=== PATIENT | male | born 1950 | race Caucasian/White ===

== ENCOUNTER → 2016-06-29 | Outpatient (CLI) | payer MEDICARE, BC ==
[2016-06-29 10:35] LABS: ANION GAP 17 (5-19); BLOOD UREA NITROGEN 66 mg/dL (7-20); CALCIUM 7.6 mg/dL (8.4-10.2); CARBON DIOXIDE 18 mmol/L (22-30); CHLORIDE 108 mmol/L (98-107); CREATININE RESULT 5.05 mg/dL (0.52-1.25); GLUCOSE 84 mg/dL (75-110); POTASSIUM 4.2 mmol/L (3.6-5.0)
[2016-06-30 11:40] LABS: CREATININE URINE 48.5 mg/dL (Not Estab.)
== END ==
LOC: OD 08:45
PROVIDERS: ATTEND Internal Medicine Nephrology
DX: N18.5 Chronic kidney disease, stage 5 (principal); N25.81 Secondary hyperparathyroidism of renal origin; R80.9 Proteinuria, unspecified
CPT/HCPCS: 36415; 80048; 82570; 83970; 84156

== ENCOUNTER 2016-07-04 01:02 | Emergency (ER) | payer BC, MEDICARE ==
[2016-07-04] MEDS ORDERED: NORMAL SALINE 1000 ML 500 ML IV ONE (01:52)
[2016-07-04] MEDS ORDERED: NORMAL SALINE 1000 ML 1,000 ML IV ONE (01:53)
--- NOTE | 2016-07-04 01:53 | ER Document Report ---
ED Fever - General Chief Complaint: Fever Stated Complaint: FEVER, URINARY PROBLEMS Time seen by provider: 01:50 Notes: Patient is a 65-year-old male that comes emergency department with chief complaint of fever that started yesterday, patient reports occasional cough, reports chills, denies any locations of pain. Patient has a history of stage V renal disease and performs self-catheterization, patient does have a history of urosepsis. Patient does not get dialysis but he has an AV fistula already prepared if he needs it. TRAVEL OUTSIDE OF THE [place] IN LAST 30 DAYS: No - Related Data Allergies/Adverse Reactions: No Known Allergies Allergy (Unverified 11/11/11 13:30) Past Medical History - General Information source: Patient - Social History Smoking Status: Never Smoker Chew tobacco use (# tins/day): No Frequency of alcohol use: None Drug Abuse: None Lives with: Family Family History: Reviewed & Not Pertinent Patient has suicidal ideation: No Patient has homicidal ideation: No - Medical History Medical History: Negative - Past Medical History Cardiac Medical History: Denies: Hx Coronary Artery Disease, Hx Heart Attack, Hx Hypertension Pulmonary Medical History: Denies: Hx Asthma, Hx Bronchitis, Hx COPD, Hx Pneumonia, Hx Tuberculosis Neurological Medical History: Denies: Hx Cerebrovascular Accident, Hx Seizures Renal/ Medical History: Denies: Hx Peritoneal Dialysis Musculoskeltal Medical History: Denies Hx Arthritis Surgical Hx: Negative Past Surgical History: Denies: Hx Pacemaker - Immunizations Hx Diphtheria, Pertussis, Tetanus Vaccination: Yes Hx Pneumococcal Vaccination: 11/04/11 Review of Systems - Review of Systems Constitutional: See HPI EENT: No symptoms reported Cardiovascular: No symptoms reported Respiratory: See HPI Gastrointestinal: No symptoms reported Genitourinary: See HPI Male Genitourinary: No symptoms reported Musculoskeletal: No symptoms reported Skin: No symptoms reported Hematologic/Lymphatic: No symptoms reported Neurological/Psychological: No symptoms reported Physical Exam - Vital signs Vitals: Temp Pulse Resp BP Pulse Ox 99.1 F 125 H 20 210/90 H 95 07/04/16 01:07 07/04/16 01:07 07/04/16 01:07 07/04/16 01:07 07/04/16 01:07 Interpretation: Normal - General General appearance: Appears well, Alert In distress: Mild - patient appears to have chills - HEENT Head: Normocephalic, Atraumatic Eyes: Normal Conjunctiva: Normal Extraocular movements intact: Yes Eyelashes: Normal Pupils: PERRL Sinus: Normal Nasal: Normal Mouth/Lips: Normal Mucous membranes: Normal Pharynx: Normal Neck: Normal - Respiratory Respiratory status: No respiratory distress. No: Respiratory distress, Labored Chest status: Nontender Breath sounds: Normal. No: Decreased air movement, Rales, Rhonchi, Stridor, Wheezing Chest palpation: Normal - Cardiovascular Rhythm: Regular, Tachycardia Heart sounds: Normal auscultation, S1 appreciated, S2 appreciated Murmur: No - Abdominal Inspection: Normal Distension: No distension Bowel sounds: Normal Tenderness: Nontender. No: Tender, Guarding - Back Back: Normal, Nontender - Extremities General upper extremity: Normal inspection, Nontender, Normal color, Normal ROM , Normal temperature General lower extremity: Normal inspection, Nontender, Normal color, Normal ROM , Normal temperature, Normal weight bearing. No: Mckayla's sign - Neurological Neuro grossly intact: Yes Cognition: Normal Orientation: AAOx4 Nicole Coma Scale Eye Opening: Spontaneous Nicole Coma Scale Verbal: Oriented [place] Coma Scale Motor: Obeys Commands Nicole Coma Scale Total: 15 Speech: Normal Motor strength normal: LUE, RUE, LLE, RLE Sensory: Normal - Psychological Associated symptoms: Normal affect, Normal mood - Skin Skin Temperature: Warm Skin Moisture: Dry Skin Color: Flushed Course - Re-evaluation Re-evalutation: Patient flushed and has chills, tachycardic, given IV fluids, sepsis workup ordered. Chest x-ray unremarkable, EKG shows tachycardia, CBC unremarkable with no leukocytosis, chemistry shows creatinine of 4.7 which is approximately baseline for patient. Chemistry and generally unremarkable otherwise, lactic acid is not elevated, venous blood gases not showing acidosis. Urinalysis shows large leukocyte esterase with bacteria and large amount of white blood cells. Patient given Levaquin. Because of history of urosepsis, patient performing self-catheterization, history of chronic kidney disease with borderline failure , discussed with patient potential admission to the hospital. Previous urine culture shows resistance to cephalosporins and penicillin-based medications. Sensitive to Rocephin and Levaquin. Patient given Rocephin as well. Patient declines admission to hospital, states he will go home, states that he will take oral medication, he does agree to contact his quarantine officer today, he has agreed to return if he feels any worse. In discussed admission to the hospital, discussed with Dr. Smith, patient declining and states he wants to go home but he will return if he worsens in any way. is in agreement with this. - Vital Signs Vital signs: Temp Pulse Resp BP Pulse Ox 99.1 F 125 H 18 179/84 H 98 07/04/16 01:07 07/04/16 01:07 07/04/16 05:01 07/04/16 05:01 07/04/16 05:01 - Laboratory Result Diagrams: 07/04/16 01:59 07/04/16 01:59 Laboratory results interpreted by me: 07/04/16 07/04/16 07/04/16 01:59 01:59 01:59 RBC 4.34 L Hgb 12.5 L Hct 36.8 L RDW 14.7 H Plt Count 81 L Seg Neutrophils % 87.7 H Lymphocytes % 9.9 L Monocytes % 1.1 L VBG pCO2 31.8 L VBG HCO3 19.6 L Chloride 109 H Carbon Dioxide 19 L BUN 51 H Creatinine 4.71 H Est GFR ( Amer) 15 L Est GFR (Non-Af Amer) 13 L Glucose 115 H Calcium 7.1 L Albumin 3.4 L Urine Protein Urine Blood Ur Leukocyte Esterase 07/04/16 02:20 RBC Hgb Hct RDW Plt Count Seg Neutrophils % Lymphocytes % Monocytes % VBG pCO2 VBG HCO3 Chloride Carbon Dioxide BUN Creatinine Est GFR ( Amer) Est GFR (Non-Af Amer) Glucose Calcium Albumin Urine Protein 100 H Urine Blood SMALL H Ur Leukocyte Esterase LARGE H Discharge - Discharge Clinical Impression: Fever Qualifiers: Fever type: unspecified Qualified Code(s): R50.9 - Fever, unspecified Urinary tract infection Qualifiers: Urinary tract infection type: site unspecified Hematuria presence: without hematuria Qualified Code(s): N39.0 - Urinary tract infection, site not specified Condition: Stable Disposition: HOME, SELF-CARE Additional Instructions: We have a urine and blood cultures growing in our laboratory. Your results indicate a urinary tract infection. Please take antibiotics as directed. Please contact your quarantine officer today for very close follow-up. Return to emergency department for any concerning or worsening symptoms. Prescriptions: Levofloxacin [Levaquin 750 mg Tablet] 750 mg PO DAILY #5 tablet Referrals: ROMAN VIERA MD [ACTIVE STAFF] - 07/04/16
[2016-07-04] MEDS ORDERED: LEVOFLOXACIN 750 MG/D5W RTU 150 ML IV ONE (02:09)
[2016-07-04 02:26] LABS: VENOUS BLOOD BASE EXCESS -4.1 mmol/L; VENOUS BLOOD HCO3 19.6 mmol/L (20-32); VENOUS BLOOD PCO2 31.8 mmHg (35-63); VENOUS BLOOD PH 7.41 (7.30-7.42)
[2016-07-04 02:32] LABS: PROTHROMBIN TIME 14.8 SEC (11.4-15.4)
[2016-07-04 02:49] LABS: ABSOLUTE LYMPHOCYTES (AUTO) 0.5 10^3/uL (0.5-4.7); ABSOLUTE MONOCYTES (AUTO) 0.1 10^3/uL (0.1-1.4); ABSOLUTE NEUT (AUTO) 4.1 10^3/uL (1.7-8.2); BASOPHILS % (AUTO) 0.4 % (0-2); EOSINOPHILS % (AUTO) 0.9 % (0-6); HEMATOCRIT 36.8 % (37.9-51.0); HEMOGLOBIN 12.5 g/dL (13.5-17.0); HGB HCT DIFFERENCE 0.7; LYMPHOCYTES % (AUTO) 9.9 % (13-45); MEAN CORPUSCULAR HEMOGLOBIN 28.8 pg (27.0-33.4); MEAN CORPUSCULAR VOLUME 85 fl (80-97); MONOCYTES % (AUTO) 1.1 % (3-13); RED BLOOD COUNT 4.34 10^6/uL (4.35-5.55); RED CELL DISTRIBUTION WIDTH 14.7 % (11.5-14.0); SEGMENTED NEUTROPHILS % (AUTO) 87.7 % (42-78); WHITE BLOOD COUNT 4.7 10^3/uL (4.0-10.5)
[2016-07-04 02:59] LABS: APPEARANCE,URINE CLOUDY; BILIRUBIN,URINE NEGATIVE (NEGATIVE); GLUCOSE, URINE NEGATIVE (NEGATIVE); KETONES,URINE NEGATIVE (NEGATIVE); LEUKOCYTE ESTERASE,URINE LARGE (NEGATIVE); NITRITE,URINE NEGATIVE (NEGATIVE); PROTEIN,URINE 100 mg/dL (NEGATIVE); UROBILINOGEN,URINE NEGATIVE mg/dL (<2.0)
[2016-07-04 03:21] LABS: ALANINE AMINOTRANSFERASE 27 U/L (21-72); ALBUMIN 3.4 g/dL (3.5-5.0); ALKALINE PHOSPHATASE 85 U/L (38-126); ANION GAP 14 (5-19); ASPARTATE AMINO TRANSFERASE 23 U/L (17-59); BILIRUBIN,TOTAL 0.7 mg/dL (0.2-1.3); BLOOD UREA NITROGEN 51 mg/dL (7-20); CALCIUM 7.1 mg/dL (8.4-10.2); CARBON DIOXIDE 19 mmol/L (22-30); CHLORIDE 109 mmol/L (98-107); CREATININE RESULT 4.71 mg/dL (0.52-1.25); GLUCOSE 115 mg/dL (75-110); POTASSIUM 3.8 mmol/L (3.6-5.0); SODIUM 142.4 mmol/L (137-145); TOTAL PROTEIN 6.5 g/dL (6.3-8.2)
[2016-07-04] MEDS ORDERED: CEFTRIAXONE 1 GM/D5W RTU 50 ML IV ONE (03:54)
[2016-07-04 05:17] VITALS: BP 179/84
--- NOTE | 2016-07-04 08:30 | EKG REPORT ---
SEVERITY:- ABNORMAL ECG - SINUS TACHYCARDIA PROBABLE LEFT ATRIAL ABNORMALITY LAD, CONSIDER LEFT ANTERIOR FASCICULAR BLOCK : Confirmed by: Artemio Tapia 04-Jul-2016 08:28:33
== END 2016-07-04 05:16 | disposition home or self-care (01) ==
LOC: ER 01:02
DX: N39.0 Urinary tract infection, site not specified (principal); R50.9 Fever, unspecified; R05 Cough; R00.0 Tachycardia, unspecified; N18.4 Chronic kidney disease, stage 4 (severe)
CPT/HCPCS: 93005; 99284; 96365; 96367; 36415; 87040; 87086; 85025; 85610; 87088; 80053; 81001; 87186; 82803; 83605; 71020; 93010; J7030; J0696; J1956

== ENCOUNTER → 2016-10-13 | Outpatient (CLI) | payer MEDICARE, BC ==
[2016-10-13 10:17] LABS: ABSOLUTE EOSINOPHILS # (AUTO) 0.1 10^3/uL (0.0-0.6); ABSOLUTE LYMPHOCYTES (AUTO) 1.7 10^3/uL (0.5-4.7); ABSOLUTE MONOCYTES (AUTO) 0.3 10^3/uL (0.1-1.4); ABSOLUTE NEUT (AUTO) 2.5 10^3/uL (1.7-8.2); BASOPHILS % (AUTO) 0.8 % (0-2); EOSINOPHILS % (AUTO) 2.6 % (0-6); HEMOGLOBIN 13.6 g/dL (13.5-17.0); HGB HCT DIFFERENCE -0.2; LYMPHOCYTES % (AUTO) 37.1 % (13-45); MEAN CORPUSCULAR HEMOGLOBIN 28.7 pg (27.0-33.4); MEAN CORPUSCULAR HGB CONC 33.2 g/dL (32.0-36.0); MEAN CORPUSCULAR VOLUME 86 fl (80-97); MONOCYTES % (AUTO) 6.8 % (3-13); RED BLOOD COUNT 4.75 10^6/uL (4.35-5.55); RED CELL DISTRIBUTION WIDTH 14.6 % (11.5-14.0); SEGMENTED NEUTROPHILS % (AUTO) 52.7 % (42-78); WHITE BLOOD COUNT 4.7 10^3/uL (4.0-10.5)
[2016-10-13 10:32] LABS: ALANINE AMINOTRANSFERASE 19 U/L (21-72); ALBUMIN 4.2 g/dL (3.5-5.0); ALKALINE PHOSPHATASE 94 U/L (38-126); ANION GAP 17 (5-19); ASPARTATE AMINO TRANSFERASE 19 U/L (17-59); BILIRUBIN,DIRECT 0.3 mg/dL (0.0-0.4); BILIRUBIN,TOTAL 0.5 mg/dL (0.2-1.3); BLOOD UREA NITROGEN 56 mg/dL (7-20); CALCIUM 7.9 mg/dL (8.4-10.2); CARBON DIOXIDE 18 mmol/L (22-30); CHLORIDE 111 mmol/L (98-107); CHOLESTEROL 232.26 mg/dL (0-200); CREATININE RESULT 4.31 mg/dL (0.52-1.25); Direct HDL 77 mg/dL (>40); GLUCOSE 89 mg/dL (75-110); POTASSIUM 4.1 mmol/L (3.6-5.0); SODIUM 145.7 mmol/L (137-145); TRIGLYCERIDES 79 mg/dL (<150)
[2016-10-13 10:42] LABS: DIRECT LDL 95 mg/dL (<100)
== END ==
LOC: OD 09:11
PROVIDERS: ATTEND Physician Assistant
DX: E78.2 Mixed hyperlipidemia (principal); Z12.5 Encounter for screening for malignant neoplasm of prostate; I10 Essential (primary) hypertension
CPT/HCPCS: 85025; 80053; 80061; G0103

== ENCOUNTER → 2016-10-14 | Outpatient (CLI) | payer MEDICARE, BC ==
[2016-10-14 11:53] LABS: APPEARANCE,URINE SLIGHTLY-CLOUDY; BILIRUBIN,URINE NEGATIVE (NEGATIVE); GLUCOSE, URINE NEGATIVE (NEGATIVE); KETONES,URINE NEGATIVE (NEGATIVE); LEUKOCYTE ESTERASE,URINE MODERATE (NEGATIVE); NITRITE,URINE POSITIVE (NEGATIVE); PROTEIN,URINE NEGATIVE (NEGATIVE); URINE SPECIFIC GRAVITY 1.006; UROBILINOGEN,URINE NEGATIVE mg/dL (<2.0)
[2016-10-14 12:15] LABS: ALBUMIN 4.5 g/dL (3.5-5.0); ANION GAP 14 (5-19); BLOOD UREA NITROGEN 54 mg/dL (7-20); CALCIUM 9.3 mg/dL (8.4-10.2); CARBON DIOXIDE 23 mmol/L (22-30); CHLORIDE 109 mmol/L (98-107); CREATININE RESULT 4.19 mg/dL (0.52-1.25); GLUCOSE 96 mg/dL (75-110); PHOSPHORUS 3.9 mg/dL (2.5-4.5); POTASSIUM 4.7 mmol/L (3.6-5.0); SODIUM 146.4 mmol/L (137-145)
[2016-10-14 12:39] LABS: URINE CREATININE 43.6 mg/dL (22-328); URINE PROTEIN 34.1 mg/dL (<12)
== END ==
LOC: OD 11:02
PROVIDERS: ATTEND Internal Medicine Nephrology
DX: N18.5 Chronic kidney disease, stage 5 (principal); N25.81 Secondary hyperparathyroidism of renal origin; R80.9 Proteinuria, unspecified
CPT/HCPCS: 36415; 80048; 81001; 82040; 82306; 82570; 83970; 84100; 84156

== ENCOUNTER 2017-01-12 06:43 | Emergency (ER) | payer MEDICARE, BC ==
[2017-01-12] MEDS ORDERED: LIDOCAINE 2% URO-JET 5 ML KIT MM ONE (08:22)
--- NOTE | 2017-01-12 09:12 | ER Document Report ---
HPI - HPI Patient complains to provider of: liang malfunction Onset: Yesterday Onset/Duration: Gradual Quality of pain: Pressure Pain Level: 1 Context: Patient is 2 days status post TURP procedure at [facility]. Patient had a Liang catheter placed. Patient states that the catheter stopped draining late last night. Patient states that he has been voiding blood-tinged urine around the Liang. Patient denies any fever, nausea, or vomiting. Patient denies any back pain. Patient only complains of mild bladder fullness. Associated Symptoms: Other - Catheter problem. denies: Fever Exacerbated by: Denies Relieved by: Denies Similar symptoms previously: No Recently seen / treated by doctor: Yes - ROS ROS below otherwise negative: Yes Systems Reviewed and Negative: Yes All other systems reviewed and negative - CONSTITUTIONAL Constitutional: DENIES: Fever, Chills - GASTROINTESTINAL Gastrointestinal: REPORTS: Abdominal Pain - Bladder fullness - REPRODUCTIVE Reproductive: DENIES: : - MUSCULOSKELETAL Musculoskeletal: DENIES: Back Pain - DERM Skin Color: Normal, [place] Skin Problems: None Past Medical History - General Information source: Patient - Social History Smoking Status: Never Smoker Chew tobacco use (# tins/day): No Frequency of alcohol use: None Drug Abuse: None Lives with: Spouse/Significant other Family History: Reviewed & Not Pertinent - Past Medical History Cardiac Medical History: Denies: Hx Coronary Artery Disease, Hx Heart Attack, Hx Hypertension Pulmonary Medical History: Denies: Hx Asthma, Hx Bronchitis, Hx COPD, Hx Pneumonia, Hx Tuberculosis Neurological Medical History: Denies: Hx Cerebrovascular Accident, Hx Seizures Renal/ Medical History: Reports: Hx Benign Prostatic Hyperplasia, Hx Renal Insufficiency. Denies: Hx Peritoneal Dialysis Musculoskeltal Medical History: Denies Hx Arthritis Past Surgical History: Reports: Hx Genitourinary Surgery - TURP. Denies: Hx Pacemaker - Immunizations Hx Diphtheria, Pertussis, Tetanus Vaccination: Yes Hx Pneumococcal Vaccination: 11/04/11 Vertical Provider Document - CONSTITUTIONAL Agree With Documented VS: Yes Exam Limitations: No Limitations General Appearance: WD/WN, No Apparent Distress - INFECTION CONTROL TRAVEL OUTSIDE OF THE [place] IN LAST 30 DAYS: No - HEENT HEENT: Atraumatic, Normocephalic - NECK Neck: Normal Inspection - RESPIRATORY Respiratory: Breath Sounds Normal, No Respiratory Distress O2 Sat by Pulse Oximetry: 96 - CARDIOVASCULAR Cardiovascular: Regular Rate, Regular Rhythm - GI/ABDOMEN Gastrointestinal: Abdomen Non-Tender Notes: mild distention noted to bladder - REPRODUCTIVE Male Genitalia: Abnormal Inspection - blood tinged urine leaking around liang - BACK Back: Normal Inspection. negative: CVA Tenderness-Right, CVA Tenderness-Left - MUSCULOSKELETAL/EXTREMETIES Musculoskeletal/Extremeties: POLA, FROM - NEURO Level of Consciousness: Awake, Alert, Appropriate Motor/Sensory: No Motor Deficit - DERM Integumentary: Warm, Dry Course - Re-evaluation Re-evalutation: 01/12/17 09:11 20 fr coude inserted without any difficulty, pt tolerated well 01/12/17 10:00 call placed to [facility] for consultation with urology 01/12/17 10:[address] Huertas at [facility] who is on-call for Dr. Brooks, discussed patient's presentation to the ER and his urinalysis results. Recommends giving patient a single dose of IM Rocephin and having him follow-up as planned. Does not recommend any empiric treatment for UTI given the patient is otherwise asymptomatic and afebrile.. 01/12/17 10:18 The patient has been informed that they may have pre-hypertension or hypertension based on a blood pressure reading in the emergency department. I recommend that patient call the primary care provider listed on their discharge instructions or a physician of their choice by this week to arrange follow-up for further evaluation of possible pre-hypertension or hypertension. - Vital Signs Vital signs: Temp Pulse Resp BP Pulse Ox 98.8 F 110 H 20 154/80 H 96 01/12/17 06:44 01/12/17 06:44 01/12/17 06:44 01/12/17 06:44 01/12/17 06:44 - Laboratory Laboratory results interpreted by me: 01/12/17 10:18 Labs- Entire Visit 01/12/17 09:00 Urine Color RED Urine Appearance CLOUDY Urine pH 6.0 Ur Specific [place] 1.004 Urine Protein 100 H Urine Glucose (UA) NEGATIVE Urine Ketones NEGATIVE Urine Blood LARGE H Urine Nitrite NEGATIVE Urine Bilirubin NEGATIVE Urine Urobilinogen NEGATIVE Ur Leukocyte Esterase SMALL H Urine WBC (Auto) 118 Urine RBC (Auto) >182 Urine Bacteria (Auto) 2+ Urine WBC Clumps MANY Urine Ascorbic Acid NEGATIVE Discharge - Discharge Clinical Impression: Elevated blood pressure reading Obstructed Liang catheter Qualifiers: Encounter type: initial encounter Qualified Code(s): T83.091A - Other mechanical complication of indwelling urethral catheter, initial encounter Condition: Stable Disposition: HOME, SELF-CARE Instructions: Liang Catheter Care ([facility]), Rocephin ([facility]) Additional Instructions: Return immediately for any new or worsening symptoms Followup with your urologist as planned, call tomorrow to make a followup appointment urine culture is pending, we will call if you need any different treatment Forms: Elevated Blood Pressure Referrals: UNIQUE CHAUDHRY MD [Primary Care Provider] - Follow up as needed
[2017-01-12 09:25] LABS: APPEARANCE,URINE CLOUDY; BILIRUBIN,URINE NEGATIVE (NEGATIVE); GLUCOSE, URINE NEGATIVE (NEGATIVE); KETONES,URINE NEGATIVE (NEGATIVE); LEUKOCYTE ESTERASE,URINE SMALL (NEGATIVE); NITRITE,URINE NEGATIVE (NEGATIVE); PROTEIN,URINE 100 mg/dL (NEGATIVE); URINE SPECIFIC GRAVITY 1.004; UROBILINOGEN,URINE NEGATIVE mg/dL (<2.0)
[2017-01-12] MEDS ORDERED: CEFTRIAXONE INJ 1000 MG VIAL IM ONE (10:17)
[2017-01-12] MEDS ORDERED: LIDOCAINE 1% INJ-PF (10 MG/ML) 30 ML SDV INJ ONE (10:17)
[2017-01-12 11:01] VITALS: BP 152/68
== END 2017-01-12 11:04 | disposition home or self-care (01) ==
LOC: ER 06:43
DX: T83.098A Other mechanical complication of other urinary catheter, initial encounter (principal); Y84.6 Urinary catheterization as the cause of abnormal reaction of the patient, or of later complication, without mention of misadventure at the time of the procedure; Z98.890 Other specified postprocedural states; N02.9 Recurrent and persistent hematuria with unspecified morphologic changes; Z90.79 Acquired absence of other genital organ(s); R03.0 Elevated blood-pressure reading, without diagnosis of hypertension
CPT/HCPCS: 99283; 96372; 51702; 87086; 87088; 81001; 87186; J3490; J0696

== ENCOUNTER → 2017-04-21 | Outpatient (CLI) | payer MEDICARE, BC ==
[2017-04-21 11:23] LABS: ALANINE AMINOTRANSFERASE 30 U/L (21-72); ALBUMIN 4.7 g/dL (3.5-5.0); ALKALINE PHOSPHATASE 111 U/L (38-126); ANION GAP 16 (5-19); ASPARTATE AMINO TRANSFERASE 21 U/L (17-59); BILIRUBIN,DIRECT 0.4 mg/dL (0.0-0.4); BILIRUBIN,TOTAL 0.5 mg/dL (0.2-1.3); BLOOD UREA NITROGEN 62 mg/dL (7-20); CALCIUM 8.1 mg/dL (8.4-10.2); CARBON DIOXIDE 20 mmol/L (22-30); CHLORIDE 110 mmol/L (98-107); CHOLESTEROL 246.03 mg/dL (0-200); CREATININE RESULT 4.58 mg/dL (0.52-1.25); Direct HDL 93 mg/dL (>40); GLUCOSE 95 mg/dL (75-110); POTASSIUM 4.5 mmol/L (3.6-5.0); SODIUM 145.7 mmol/L (137-145); TOTAL PROTEIN 7.8 g/dL (6.3-8.2); TRIGLYCERIDES 64 mg/dL (<150)
[2017-04-21 11:34] LABS: DIRECT LDL 106 mg/dL (<100)
== END ==
LOC: OD 10:21
PROVIDERS: ATTEND Physician Assistant
DX: E78.2 Mixed hyperlipidemia (principal)
CPT/HCPCS: 36415; 80053; 80061

== ENCOUNTER → 2017-11-03 | Outpatient (CLI) | payer BC, MEDICARE ==
[2017-11-03 10:19] LABS: ABSOLUTE BASOPHILS # (AUTO) 0.1 10^3/uL (0.0-0.2); ABSOLUTE EOSINOPHILS # (AUTO) 0.1 10^3/uL (0.0-0.6); ABSOLUTE LYMPHOCYTES (AUTO) 1.5 10^3/uL (0.5-4.7); ABSOLUTE MONOCYTES (AUTO) 0.3 10^3/uL (0.1-1.4); ABSOLUTE NEUT (AUTO) 2.7 10^3/uL (1.7-8.2); BASOPHILS % (AUTO) 1.1 % (0-2); EOSINOPHILS % (AUTO) 1.8 % (0-6); HEMATOCRIT 42.4 % (37.9-51.0); HEMOGLOBIN 14.3 g/dL (13.5-17.0); LYMPHOCYTES % (AUTO) 32.7 % (13-45); MEAN CORPUSCULAR HEMOGLOBIN 28.6 pg (27.0-33.4); MEAN CORPUSCULAR HGB CONC 33.8 g/dL (32.0-36.0); MEAN CORPUSCULAR VOLUME 85 fl (80-97); MONOCYTES % (AUTO) 6.1 % (3-13); PLATELET COUNT 120 10^3/uL (150-450); RED BLOOD COUNT 5.01 10^6/uL (4.35-5.55); RED CELL DISTRIBUTION WIDTH 14.3 % (11.5-14.0); SEGMENTED NEUTROPHILS % (AUTO) 58.3 % (42-78); TOTAL CELLS COUNTED % (AUTO) 100 %; WHITE BLOOD COUNT 4.7 10^3/uL (4.0-10.5)
[2017-11-03 10:42] LABS: ALANINE AMINOTRANSFERASE 20 U/L (21-72); ALBUMIN 4.4 g/dL (3.5-5.0); ALKALINE PHOSPHATASE 112 U/L (38-126); ANION GAP 15 (5-19); ASPARTATE AMINO TRANSFERASE 17 U/L (17-59); BILIRUBIN,DIRECT 0.3 mg/dL (0.0-0.4); BILIRUBIN,TOTAL 0.3 mg/dL (0.2-1.3); BLOOD UREA NITROGEN 56 mg/dL (7-20); CALCIUM 7.9 mg/dL (8.4-10.2); CARBON DIOXIDE 23 mmol/L (22-30); CHLORIDE 110 mmol/L (98-107); GLUCOSE 97 mg/dL (75-110); POTASSIUM 4.8 mmol/L (3.6-5.0); SODIUM 147.5 mmol/L (137-145); TOTAL PROTEIN 7.4 g/dL (6.3-8.2); TRIGLYCERIDES 68 mg/dL (<150)
[2017-11-03 10:53] LABS: DIRECT LDL 102 mg/dL (<100)
== END ==
LOC: OD 09:28
PROVIDERS: ATTEND Internal Medicine
DX: E78.2 Mixed hyperlipidemia (principal); R97.20 Elevated prostate specific antigen [PSA]; I10 Essential (primary) hypertension
CPT/HCPCS: 36415; 85025; 80053; 80061; G0103; 84153

== ENCOUNTER → 2018-11-23 | Outpatient (CLI) | payer MEDICARE, BC ==
[2018-11-23 10:21] LABS: ANION GAP 12 (5-19); BLOOD UREA NITROGEN 60 mg/dL (7-20); CALCIUM 7.7 mg/dL (8.4-10.2); CARBON DIOXIDE 18 mmol/L (22-30); CHLORIDE 112 mmol/L (98-107); GLUCOSE 98 mg/dL (75-110); POTASSIUM 4.3 mmol/L (3.6-5.0); SODIUM 142.3 mmol/L (137-145)
== END ==
LOC: OD 09:14
PROVIDERS: ATTEND Internal Medicine Nephrology
DX: N18.5 Chronic kidney disease, stage 5 (principal)
CPT/HCPCS: 36415; 80048; 84156

== ENCOUNTER → 2019-03-27 | Outpatient (CLI) | payer MEDICARE, BC ==
[2019-03-27 11:22] LABS: ANION GAP 11 (5-19); BLOOD UREA NITROGEN 72 mg/dL (7-20); CALCIUM 7.8 mg/dL (8.4-10.2); CARBON DIOXIDE 24 mmol/L (22-30); CHLORIDE 106 mmol/L (98-107); GLUCOSE 92 mg/dL (75-110); PHOSPHORUS 4.4 mg/dL (2.5-4.5); POTASSIUM 4.8 mmol/L (3.6-5.0)
[2019-03-27 11:39] LABS: UR PRO/CREAT RATIO RESULT 0.6 mg/mg (0.0-0.2); URINE CREATININE 61.8 mg/dL (22-328); URINE PROTEIN 35.5 mg/dL (<12)
== END ==
LOC: OD 10:33
PROVIDERS: ATTEND Internal Medicine Nephrology
DX: I12.0 Hypertensive chronic kidney disease with stage 5 chronic kidney disease or end stage renal disease (principal); N18.5 Chronic kidney disease, stage 5; E83.30 Disorder of phosphorus metabolism, unspecified; N25.81 Secondary hyperparathyroidism of renal origin
CPT/HCPCS: 36415; 80048; 82570; 83970; 84100; 84156

== ENCOUNTER → 2019-04-08 | Outpatient (CLI) | payer MEDICARE, BC ==
--- NOTE | 2019-04-08 14:55 | RADIOLOGY REPORT (SQ) ---
EXAM DESCRIPTION: NM PARATHYROID IMAGING COMPLETED DATE/TIME: 04/08/2019 2:26 pm REASON FOR STUDY: HYPERPARATHYROIDISM (E21.3) E21.3 HYPERPARATHYROIDISM, UNSPECIFIED COMPARISON: None. RADIONUCLIDE AND DOSE: 21.3 millicuries Tc-99m Sestamibi. The route of agent administration: Intravenous ADDITIONAL DRUGS AND DOSES: None. TECHNIQUE: Early and delayed images of the neck acquired following radionuclide administration. LIMITATIONS: None. FINDINGS: Thyroid: Normal size. Homogeneous activity. Normal washout. No focal lesions. Parathyroid: No retained activity in the thyroid or elsewhere in the neck to indicate a parathyroid a denoma. Other: No other significant findings. IMPRESSION: NORMAL STUDY. NO EVIDENCE OF PARATHYROID ADENOMA. TECHNICAL DOCUMENTATION: JOB ID: [id number] [employer]- All Rights Reserved Reading location - IP/workstation name: [email or web address]
== END ==
LOC: RAD 10:34
PROVIDERS: ATTEND Internal Medicine Nephrology
DX: N18.5 Chronic kidney disease, stage 5 (principal); E21.1 Secondary hyperparathyroidism, not elsewhere classified
CPT/HCPCS: 78070; A9500; Q9969